=== PATIENT | female | born 1980 | race Caucasian/White ===

== ENCOUNTER 2017-10-06 07:10 | Inpatient (IN) | payer MEDICAID ==
[2017-10-06] VITALS (16 sets, daily range): BP systolic 128–159; BP diastolic 74–96; PULSE 77–110; TEMP 98.1–99.6
[~2017-10-06] VITALS: Ht 170.2 cm; Wt 94.1 kg
[2017-10-06] MEDS ORDERED: PRENATAL1 TA7 PO (07:30)
[2017-10-06] MEDS ORDERED: VITAMINC1000TA (07:31)
[2017-10-06] MEDS ORDERED: OSCAL 500 TAB500 MG PO (07:31)
[2017-10-06] MEDS ORDERED: ACIDOPHILIS (07:32)
[2017-10-06] MEDS ORDERED: THE MEDICINE S200 M2 PO (07:32)
[2017-10-06 09:59] LABS: BASO % 0.3 % (0.0-2.0); EOS # 0.1 (0.0-0.7); EOS % 0.7 % (0-4.0); GRAN # 9.3 (1.4-6.5); GRAN % 79.7 % (42.2-75.2); HEMOGLOBIN 13.3 g/dl (12.5-16.0); LYMPH # 1.6 (1.2-3.4); LYMPH % 13.5 % (20.0-51.0); MEAN CELL VOLUME 89 fl (80.0-100.0); MEAN CORPUSCULAR HEMOGLOBIN 31 pg (27.0-31.0); MEAN CORPUSCULAR HGB CONC 35 g/dl (33.0-37.0); MEAN PLATELET VOLUME 11.1 fl (7.4-10.4); MONO # 0.6 (0.1-0.6); MONO % 5.2 % (1.7-9.3); PLATELET COUNT 205 K/mm3 (130-400); RED BLOOD COUNT 4.26 M/mm3 (4.10-5.30); REDCELL DISTRIBUTION WIDTH-CV 13.1 % (11.5-14.5)
[2017-10-06 10:11] LABS: ALBUMIN 3.7 gm/dL (3.5-5.0); BILIRUBIN,TOTAL 0.4 mg/dL (0.0-1.0); CALCIUM 9.2 mg/dL (8.4-10.2); CREATININE, serum 0.6 mg/dL (0.52-1.25); POTASSIUM 3.6 mmol/L (3.4-5.0); TOTAL PROTEIN 7.3 gm/dL (6.4-8.2)
[2017-10-07 03:15] VITALS: BP 122/71; PULSE 87; TEMP 98.8
[2017-10-07 08:15] VITALS: BP 129/79; PULSE 84; TEMP 98.4
[2017-10-07 12:21] VITALS: BP 129/83; PULSE 71; TEMP 97.8
[2017-10-07 16:30] VITALS: BP 126/81; PULSE 71; TEMP 98.3
== END 2017-10-07 17:40 | disposition home or self-care (01) | DRG 775 ==
LOC: LDRO 07:10 → LDR 08:57 → OB 08:57
PROVIDERS: Student in an Organized Health Care Education/Training Program
PROC: 10E0XZZ Delivery of Products of Conception, External Approach (ICD-10-PCS; principal; 2017-10-06)
DX: O34.211 Maternal care for low transverse scar from previous cesarean delivery (principal); Z3A.40 40 weeks gestation of pregnancy; Z37.0 Single live birth

== ENCOUNTER 2021-02-28 03:03 | Outpatient (CLI) | payer OTHER ==
[~2021-02-28] VITALS: Ht 170.2 cm; Wt 90.0 kg
[~2021-02-28 03:03] MED LIST: ACIDOPHILIS; MOTRIN 800800 MG/TAB PO; OSCAL 500 TAB500 MG PO; PERCOCET 325 MG1 TA2 PO; PRENATAL TABLET PO; PRENATAL1 TA7 PO; THE MEDICINE S200 M2 PO; VITAMINC1000TA
--- NOTE | 2021-02-28 03:13 | NUR ---
PT AMBULATED UP TO UNIT AND SHOWN TO ROOM BY THIS RN. PT PRESENTS CONTRACTIONS THROUGHOUT NIGHT Q4-20 MIN APART RATED AT 3/10 PAIN. PT DENIES SROM, VAGINAL BLEEDING, OR DECREASED MOVEMENT. PT IS , 39.3 WEEKS, GBS-, X7 C/S X1.
--- NOTE | 2021-02-28 03:20 | NUR ---
EFM AND TOCO APPLIED
[2021-02-28 03:30] VITALS: BP 133/86; PULSE 99; TEMP 98
[2021-02-28 04:00] VITALS: BP 126/84; PULSE 90
--- NOTE | 2021-02-28 04:05 | NUR ---
PATIENT RESTING IN BED, NO SIGNS OF DISTRESS. TOCO ADJUSTED. PT DENIES FURTHER NEEDS AT THIS TIME
[2021-02-28 04:30] VITALS: PULSE 96
--- NOTE | 2021-02-28 04:56 | NUR ---
EFM AND TOCO REAPPLIED FOLLOWING PT AMBULATING
[2021-02-28 05:30] VITALS: BP 130/87; PULSE 78
--- NOTE | 2021-02-28 05:35 | NUR ---
RN REINFORCED LABOR PRECAUTIONS AND PT VERBALIZED AN UNDERSTANDING. PT GIVEN COPY OF DISCHARGE INSTRUCTIONS AND DENIES FURTHER QUESTIONS.
--- NOTE | 2021-02-28 05:39 | NUR ---
PT AMBULATED OFF UNIT AT THIS TIME IN STABLE, UNDELIVERED CONDITION. PT DISCHARGED TO HOME
== END 2021-02-28 05:39 | disposition home or self-care (01) ==
LOC: LDRO 03:03 → LDR 03:13 → LDRO 05:39
DX: O62.9 Abnormality of forces of labor, unspecified (principal); Z3A.39 39 weeks gestation of pregnancy
CPT/HCPCS: OP

== ENCOUNTER 2021-03-03 11:54 | Inpatient (IN) | payer OTHER ==
[~2021-03-03] VITALS: Ht 167.6 cm; Wt 89.5 kg
[2021-03-11] VITALS (26 sets, daily range): BP systolic 117–158; BP diastolic 69–99; PULSE 68–104; TEMP 97.7–98.2
--- NOTE | 2021-03-11 06:35 | NUR ---
Pt ambulatory onto unit with spouse. Pt changed into clean gown. FHR monitor/TOCO applied. Pt denies any vaginal bleeding, decreased movement, regular contractions, or leaking of fluid. Consents signed. Assessments charted. 18 gauge IV started in right hand and lab work sent off. 0720 LR and pitocin started per protocol.
[2021-03-11 07:42] LABS: BASO # 0.1 K/mm3 (0.0-0.2); BASO % 0.5 % (0.0-2.0); EOS # 0.2 K/mm3 (0.0-0.7); EOS % 1.3 % (0.0-4.0); GRAN # 9.5 K/mm3 (1.4-6.5); GRAN % 76.2 % (42.2-75.2); HEMOGLOBIN 12.5 g/dl (12.5-16.0); LYMPH # 1.9 K/mm3 (1.2-3.4); LYMPH % 15.3 % (20.0-51.0); MEAN CELL VOLUME 89 fl (80.0-100.0); MEAN CORPUSCULAR HEMOGLOBIN 31 pg (27-31); MEAN CORPUSCULAR HGB CONC 34 g/dl (33.0-37.0); MEAN PLATELET VOLUME 10.4 fl (7.4-10.4); MONO # 0.8 K/mm3 (0.1-0.6); PLATELET COUNT 212 K/mm3 (130-400); RED BLOOD COUNT 4.09 M/mm3 (4.10-5.30); REDCELL DISTRIBUTION WIDTH-CV 12.9 % (11.5-14.5)
[2021-03-11 07:46] LABS: HEMATOCRIT 36.4 % (37.0-47.0)
--- NOTE | 2021-03-11 09:00 | NUR ---
Dr. Chisholm on unit reviewing FHR strip. Discusses risks of TOLAC and plan of care with patient. [address] Chisholm 2. SROM @ 0900. Clear fluid noted.
--- NOTE | 2021-03-11 11:30 | NUR ---
1105 Dr. Chisholm in patients room. Assessing FHR strip. SVE by Dr. Chisholm /+2. 1106 This RN notifies nursey and charge nurse. Preparing for delivery. 1112 Spontaneous vaginal delivery of viable female . Infant stimulated and bulb suctioned. to mother's chest. Emilee takes over care of infant. Cord clamping delayed. Superficial perineal laceration repaired by Dr Chisholm. Cord clamped by Dr Chisholm and cut by FOB. 1119 Spontaneous delivery of placenta. Pitocin bolus started per protocol. Fundal massage done. Firm/midline. Small amt of bleeding noted. Pt repositioned and safety precautions discussed. Pt verbalizes understanding.
[2021-03-12 01:00] VITALS: BP 137/89; PULSE 77; TEMP 98.3
[2021-03-12 03:40] VITALS: PULSE 72; TEMP 98.1
[2021-03-12 04:40] VITALS: BP 130/84
[2021-03-12 07:50] VITALS: BP 123/64; PULSE 76; TEMP 97.7
[2021-03-12] MEDS ORDERED: IBU600 MG PO (10:04)
== END 2021-03-12 13:25 | disposition home or self-care (01) | DRG 807 ==
LOC: LDRO 11:54 → EDSTATUS 15:05 → OB 03-11 06:22 → LDR 03-11 06:22 → OB 03-11 15:00
PROVIDERS: ADMIT Obstetrics & Gynecology
PROC: 10E0XZZ Delivery of Products of Conception, External Approach (ICD-10-PCS; principal; 2021-03-11)
PROC: 10907ZC Drainage of Amniotic Fluid, Therapeutic from Products of Conception, Via Natural or Artificial Opening (ICD-10-PCS; 2021-03-11)
PROC: 3E033VJ Introduction of Other Hormone into Peripheral Vein, Percutaneous Approach (ICD-10-PCS; 2021-03-11)
PROC: 0HQ9XZZ Repair Perineum Skin, External Approach (ICD-10-PCS; 2021-03-11)
DX: O48.0 Post-term pregnancy (principal); Z37.0 Single live birth; O34.211 Maternal care for low transverse scar from previous cesarean delivery; O70.9 Perineal laceration during delivery, unspecified; Z3A.41 41 weeks gestation of pregnancy; Z28.21 Immunization not carried out because of patient refusal
CPT/HCPCS: J2590; J2795; J7120